=== PATIENT | male | born 1965 | race Caucasian/White ===

== ENCOUNTER 2020-01-03 12:46 | Outpatient (CLI) | payer BC ==
--- NOTE | 2020-01-03 13:11 | RAD ---
EXAM: XR Thoracic Spine 3 V STANDARD PROVIDED CLINICAL HISTORY: Radicular pain COMPARISON: None FINDINGS: Thoracic alignment appears normal. Vertebral body heights appear preserved. Intervertebral disc space heights appear preserved. Moderate hiatal hernia. Pedicles appear intact. No lytic or blastic bony lesions are apparent. IMPRESSION: Moderate hiatal hernia. Otherwise unremarkable thoracic spine radiographs.
--- NOTE | 2020-01-03 13:21 | RAD ---
EXAM: XR Lumbar Spine 2 Or 3 View PROVIDED CLINICAL HISTORY: Radicular pain COMPARISON: None FINDINGS: 5 nonrib-bearing lumbar-type vertebral bodies are demonstrated. Partial sacralization of the L5 segme nt. Lumbar alignment appears normal. Vertebral body heights appear preserved. Intervertebral disc space heights appear preserved. Pedicles appear intact. SI joints appear symmetric. Lower lumbar face t degenerative changes are seen. Conspicuous atherosclerotic vascular calcification involves the abdominal aorta. IMPRESSION: Lower lumbar spine facet arthritis.
== END 2020-01-03 12:47 | disposition home or self-care (01) ==
LOC: RAD 12:46
PROVIDERS: ATTEND Specialist
DX: M54.10 Radiculopathy, site unspecified (principal); M47.816 Spondylosis without myelopathy or radiculopathy, lumbar region; K44.9 Diaphragmatic hernia without obstruction or gangrene
CPT/HCPCS: 72072; 72100